=== PATIENT | male | born 1960 | race Caucasian/White ===

== ENCOUNTER 2017-02-02 06:54 | Outpatient (CLI) | payer BC ==
[2017-02-02 19:22] LABS: BASOPHILS % (AUTO) 0.5 %; EOSINOPHILS % (AUTO) 0.4 %; HCT - HEMATOCRIT 42.1 % (42.0-52.0); HGB - HEMOGLOBIN 14.2 g/dL (14.0-18.0); LYMPHOCYTES # (AUTO) 1.5 10^3/uL (1.5-3.5); LYMPHOCYTES % (AUTO) 18.3 %; MEAN CORPUSCULAR HEMOGLOBIN 32.3 pg (27.0-31.0); MEAN CORPUSCULAR HGB CONC 33.7 g/dL (32.0-36.0); MEAN CORPUSCULAR VOLUME 95.7 fL (80.0-94.0); MONOCYTES # (AUTO) 0.4 10^3/uL (0.0-1.0); MONOCYTES % (AUTO) 4.7 %; NEUTROPHILS # (AUTO) 6.3 10^3/uL (1.5-6.6); NEUTROPHILS % (AUTO) 76.1 %; RED CELL DISTRIBUTION WIDTH 13.2 % (12.0-15.0); UNCORRECTED WHITE BLOOD COUNT 8.2 x10^3/uL; WHITE BLOOD COUNT 8.2 x10^3/uL (4.8-10.8)
[2017-02-02 19:45] LABS: ALBUMIN/GLOBULIN RATIO 2.1 (1.0-2.2); BILIRUBIN,TOTAL 1.2 mg/dL (0.2-1.0); BUN - BLOOD UREA NITROGEN 19 mg/dL (6-20); CALCIUM 9.1 mg/dL (8.5-10.3); CARBON DIOXIDE - CO2 25 mmol/L (21-32); CHLORIDE 102 mmol/L (101-111); CHOL/HDL RATIO 2.1 (<5.0); CHOLESTEROL 212 mg/dL; CREATININE 0.7 mg/dL (0.6-1.2); GFR - MDRD 117 (>89); GLUCOSE 104 mg/dL (70-100); HDL CHOLESTEROL 101 mg/dL; POTASSIUM 3.8 mmol/L (3.5-5.0); SODIUM 137 mmol/L (135-145); TOTAL PROTEIN 6.6 g/dL (6.7-8.2); TRIGLYCERIDES 64 mg/dL; VLDL CHOLESTEROL 13 mg/dL
== END 2017-02-02 06:55 ==
LOC: LAB.WCP 06:54
PROVIDERS: ATTEND Family Medicine
DX: I49.8 Other specified cardiac arrhythmias (principal)
CPT/HCPCS: 36415; 80053; 80061; 84443; 85025

== ENCOUNTER 2017-06-25 17:24 | Emergency (ER) | payer OTHER, BC ==
--- NOTE | 2017-06-25 17:31 | ED Physician Documentation ---
PD HPI ANIMAL BITE - Stated complaint Stated Complaint: DOG BITE - History obtained from History obtained from: Patient - History of Present Illness Location of injury(ies): Right hand (dorsal MCP of index finger.) Details of the event: Dog, Bite, Well appearing (he was at work at [employer] and approached a car customer and the dog bit him in hand as he reached to it.) , Immunized, Provoked, Animal control notified Timing - onset: Today Timing - details: Abrupt onset Associated symptoms: No: Weakness, Numbness, Tingling Contributing factors: Work related Similar symptoms before: Has not had sx before Recently seen: Not recently seen Review of Systems Neurologic: denies: Focal weakness, Numbness, Near syncope PD PAST MEDICAL HISTORY - Past Medical History Neuro: None Endocrine/Autoimmune: None - Present Medications Home Medications: Ambulatory Orders Medication Instructions Recorded Confirmed Acetaminophen [Tylenol] 2 tab PO TID 06/25/17 06/25/17 Amox/Clav 875/125 [Augmentin] 1 each PO BID #10 tablet 06/25/17 Meloxicam [Mobic] 1 tab PO DAILY 06/25/17 06/25/17 - Allergies Allergies/Adverse Reactions: Allergies Allergy/AdvReac Type Severity Reaction Status Date / Time No Known Drug Allergies Allergy Verified 06/25/17 17:33 PD ED PE NORMAL - Vitals Vital signs reviewed: Yes - General General: Alert and oriented X 3, No acute distress, Well developed/nourished - Derm Derm: Normal color, Warm and dry - Extremities Extremities: Other (right hand with 2 cm lac over index finger MCP, exposing joint capsule but no deep structures. No FB. ) - Neuro Neuro: Alert and oriented X 3, No motor deficit, No sensory deficit, Normal speech Results - Vitals Vitals: Oxygen O2 Source Room air Procedures - Laceration (location) right hand Length in cm: 2 Wound type: Curved Neurovascular status: Sensory intact, Motor intact, Vascular intact Tendon involvement: Tendon intact Anesthesia: Lidocaine 2% with epi Wound Preparation: Irrigated copiously NS Skin layer closure: Nylon, Interrupted, Size #-0 - enter number (4) Other: Patient tolerated well, No complications, Neurovascular intact, Dressing applied, Tetanus UTD Complexity: Simple PD MEDICAL DECISION MAKING - ED course Complexity details: considered differential, d/w patient Departure - Departure Disposition: 01 Home, Self Care Clinical Impression: Dog bite of right hand Qualifiers: Encounter type: initial encounter Qualified Code(s): S61.451A - Open bite of right hand, initial encounter Hand laceration Qualifiers: Encounter type: initial encounter Foreign body presence: without foreign body Laterality: right Qualified Code(s): S61.411A - Laceration without foreign body of right hand, initial encounter Condition: Stable Record reviewed to determine appropriate education?: Yes Instructions: ED Bite Animal General, ED Laceration Hand Follow-Up: Mahendra Gallo MD [Primary Care Provider] - Prescriptions: Amox/Clav 875/125 [Augmentin] 1 each PO BID #10 tablet Comments: It is okay to wash and shower. Clean off the wound twice a day with soap and water, or peroxide and water. Apply some antibiotic ointment to it to keep it moist. Also to watch for signs of infection such as purulence, redness or increasing pain. Return to your primary care or the ER at the specified time for suture removal. Suture removal in 12-14 days. Discharge Date/Time: 06/25/17 18:44
[2017-06-25 17:34] VITALS: BP 141/101
[2017-06-25] MEDS ORDERED: IBUPROFEN 600 MG TABLET PO STA (17:37)
[2017-06-25] MEDS ORDERED: LIDOCAINE MPF 1%-EPI 1:200000 30 ML VIAL SUBQ STA (17:37)
[2017-06-25] MEDS ORDERED: AMOX/CLAV 875 MG/125 MG TABLET PO STA (17:37)
[2017-06-25] MEDS ORDERED: IBUPROFEN 600 MG TABLET PO ONE (17:48)
[2017-06-25] MEDS ORDERED: LIDOCAINE 2%-EPI 1:100000 20 ML MDV ONE (17:48)
[2017-06-25] MEDS ORDERED: AMOX/CLAV 875 MG/125 MG TABLET PO ONE (17:48)
== END 2017-06-25 18:44 | disposition home or self-care (01) ==
LOC: ED 17:24
DX: S61.210A Laceration without foreign body of right index finger without damage to nail, initial encounter (principal); W54.0XXA Bitten by dog, initial encounter; Y92.89 Other specified places as the place of occurrence of the external cause; Y99.0 Civilian activity done for income or pay
CPT/HCPCS: 1040M; 12001; 99283; A9270

== ENCOUNTER 2017-09-14 17:51 | Outpatient (CLI) | payer BC, OTHER ==
[2017-09-14 15:23] LABS: BASOPHILS # (AUTO) 0.3 10^3/uL (0.0-0.1); BASOPHILS % (AUTO) 3.4 %; EOSINOPHILS # (AUTO) 0.3 10^3/uL (0.0-0.7); HGB - HEMOGLOBIN 10.6 g/dL (14.0-18.0); LYMPHOCYTES # (AUTO) 1.7 10^3/uL (1.5-3.5); LYMPHOCYTES % (AUTO) 19.4 %; MEAN CORPUSCULAR HEMOGLOBIN 30.5 pg (27.0-31.0); MEAN CORPUSCULAR HGB CONC 33.6 g/dL (32.0-36.0); MEAN CORPUSCULAR VOLUME 90.7 fL (80.0-94.0); MEAN PLATELET VOLUME 6.4 fL (7.4-11.4); MONOCYTES # (AUTO) 0.5 10^3/uL (0.0-1.0); MONOCYTES % (AUTO) 6.1 %; NEUTROPHILS # (AUTO) 5.8 10^3/uL (1.5-6.6); NEUTROPHILS % (AUTO) 67.1 %; PLT - PLATELET COUNT 483 10^3/uL (130-450); RED BLOOD COUNT 3.49 10^6/uL (4.70-6.10); RED CELL DISTRIBUTION WIDTH 13.8 % (12.0-15.0); WHITE BLOOD COUNT 8.6 x10^3/uL (4.8-10.8)
[2017-09-14 15:39] LABS: CALCIUM 8.9 mg/dL (8.5-10.3); CREATININE 0.7 mg/dL (0.6-1.2); CRP - C-REACTIVE PROTEIN 2.9 mg/dL (0-1.0)
== END 2017-09-14 17:52 | disposition home or self-care (01) ==
LOC: LAB.R 17:51
PROVIDERS: ATTEND Internal Medicine
DX: T81.4XXA Infection following a procedure, initial encounter (principal)
CPT/HCPCS: 80048; 85025; 86140

== ENCOUNTER 2018-04-22 07:09 | Outpatient (CLI) | payer BC ==
[2018-04-22 14:46] LABS: BASOPHILS % (AUTO) 0.4 %; EOSINOPHILS # (AUTO) 0.2 10^3/uL (0.0-0.7); EOSINOPHILS % (AUTO) 4.4 %; HGB - HEMOGLOBIN 14.9 g/dL (14.0-18.0); LYMPHOCYTES # (AUTO) 1.8 10^3/uL (1.5-3.5); LYMPHOCYTES % (AUTO) 35.9 %; MEAN CORPUSCULAR HEMOGLOBIN 32.8 pg (27.0-31.0); MEAN CORPUSCULAR HGB CONC 34.5 g/dL (32.0-36.0); MEAN CORPUSCULAR VOLUME 95.3 fL (80.0-94.0); MEAN PLATELET VOLUME 7.1 fL (7.4-11.4); MONOCYTES # (AUTO) 0.4 10^3/uL (0.0-1.0); MONOCYTES % (AUTO) 7.2 %; NEUTROPHILS # (AUTO) 2.6 10^3/uL (1.5-6.6); NEUTROPHILS % (AUTO) 52.1 %; PLT - PLATELET COUNT 274 10^3/uL (130-450); RED BLOOD COUNT 4.54 10^6/uL (4.70-6.10); RED CELL DISTRIBUTION WIDTH 13.4 % (12.0-15.0)
[2018-04-22 14:54] LABS: ALBUMIN 4.4 g/dL (3.2-5.5); ALBUMIN/GLOBULIN RATIO 1.8 (1.0-2.2); ALKALINE PHOSPHATASE 72 IU/L (42-121); ALT ALANINE AMINOTRANSFERASE 29 IU/L (10-60); AST ASPARTATE AMINOTRANSFERASE 29 IU/L (10-42); BILIRUBIN,TOTAL 0.7 mg/dL (0.2-1.0); BUN - BLOOD UREA NITROGEN 25 mg/dL (6-20); CARBON DIOXIDE - CO2 23 mmol/L (21-32); CHLORIDE 103 mmol/L (101-111); CHOL/HDL RATIO 2.3 (<5.0); CHOLESTEROL 223 mg/dL; CREATININE 0.7 mg/dL (0.6-1.2); GFR - MDRD 117 (>89); GLUCOSE 103 mg/dL (70-100); HDL CHOLESTEROL 99 mg/dL; LDL CHOLESTEROL,CALCULATED 113 mg/dL; LDL/HDL RATIO 1.1 (<3.6); SODIUM 136 mmol/L (135-145); TOTAL PROTEIN 6.9 g/dL (6.7-8.2); VLDL CHOLESTEROL 11 mg/dL
== END 2018-04-22 07:10 | disposition home or self-care (01) ==
LOC: LAB.WCP 07:09
PROVIDERS: ATTEND Family Medicine
DX: I10 Essential (primary) hypertension (principal); R68.82 Decreased libido; Z12.5 Encounter for screening for malignant neoplasm of prostate
CPT/HCPCS: 36415; 80053; 80061; 81599; 83721; 84153; 84402; 84403; 84443; 85025

== ENCOUNTER 2019-04-06 18:32 | Emergency (ER) | payer BC ==
[2019-04-06 18:53] VITALS: BP 145/91
--- NOTE | 2019-04-06 19:00 | ED Physician Documentation ---
PD HPI LOWER EXT INJURY - Stated complaint Stated Complaint: LT KNEE PX/RED,SWELL - Chief complaint Chief Complaint: Ext Problem - History obtained from History obtained from: Patient - History of Present Illness PD HPI LOW EXT INJURY LOCATION: Left (Since yesterday he is had increasingly painful swelling of the left knee. He went to an urgent care that advised rest and ice but it is progressive despite that. He does have a history of bursitis. He denies any fevers. There is no specific injury. He is on his knees occasionally at work.) Review of Systems Constitutional: reports: Reviewed and negative Throat: reports: Reviewed and negative Cardiac: reports: Reviewed and negative Respiratory: reports: Reviewed and negative PD PAST MEDICAL HISTORY - Past Medical History Endocrine/Autoimmune: None Musculoskeletal: Chronic back pain - Past Surgical History Past Surgical History: Yes General: Appendectomy Ortho: Shoulder arthroplasty, Other - Present Medications Home Medications: Ambulatory Orders Medication Instructions Recorded Confirmed Acetaminophen [Tylenol] 2 tab PO TID 06/25/17 06/25/17 Amox/Clav 875/125 [Augmentin] 1 each PO BID #10 tablet 06/25/17 Meloxicam [Mobic] 1 tab PO DAILY 06/25/17 06/25/17 Cephalexin [Keflex] 500 mg PO Q6H #28 capsule 04/06/19 - Allergies Allergies/Adverse Reactions: Allergies Allergy/AdvReac Type Severity Reaction Status Date / Time No Known Drug Allergies Allergy Verified 04/06/19 18:53 - Social History Does the pt smoke?: No Smoking Status: Never smoker Does the pt drink ETOH?: Yes Does the pt have substance abuse?: No - Immunizations Immunizations are current?: Yes - POLST Patient has POLST: No PD ED PE NORMAL - Vitals Vital signs reviewed: Yes - General General: Alert and oriented X 3, No acute distress - Extremities Extremities: Other (He is a clear case of patellar bursitis on the left, very swollen red and mildly tender. No limited range of motion.) - Neuro Neuro: Alert and oriented X 3, Normal speech Results - Vitals Vitals: Vital Signs - 24 hr 04/06/19 18:46 Temperature 36.5 C Heart Rate 76 Respiratory 16 Rate Blood Pressure 145/91 H O2 Saturation 95 Oxygen O2 Source Room air - Labs Labs: Microbiology 04/06/19 19:10 Wound Culture - Preliminary Knee - Left Procedures - General procedure General procedure: The left knee was prepped with Hibiclens, locally infiltrated with 1% lidocaine with epinephrine, then a an anterior incision was made over the prepatellar bursa and and copious clear fluid was taken out and sent for culture. Quarter inch packing was placed. The patient tolerated this very well. Departure - Departure Disposition: 01 Home, Self Care Clinical Impression: Prepatellar bursitis Condition: Good Record reviewed to determine appropriate education?: Yes Instructions: ED Bursitis Follow-Up: [facility] [Provider Group] - Within 1 week Prescriptions: Cephalexin [Keflex] 500 mg PO Q6H #28 capsule Comments: He can remove the packing in 2 days. Return for new worsening symptoms such as fever, increased pain or swelling. We are performing a wound culture, the results should be done in 48-72 hours. If antibiotic change is necessary we will call you. Return if worse in the meantime, especially if you develop increased pain, fevers, cannot keep down the medication. Discharge Date/Time: 04/06/19 19:22
[2019-04-06] MEDS ORDERED: cephALEXin 250 MG CAPSULE PO STA (19:11)
== END 2019-04-06 19:22 | disposition home or self-care (01) ==
LOC: ED 18:32
DX: M70.42 Prepatellar bursitis, left knee (principal)
CPT/HCPCS: 20610; 87070; 87181; 87205; 99283; A9270

== ENCOUNTER 2019-04-07 05:33 | Emergency (ER) | payer BC ==
[2019-04-07 05:44] VITALS: BP 152/99
[2019-04-07] MEDS ORDERED: oxyCODONE 5 MG TABLET PO STA (05:50)
[2019-04-07] MEDS ORDERED: oxyCODONE/ACET 5/325 Prepack 4 PO STA (05:50)
[2019-04-07] MEDS ORDERED: ONDANSETRON ODT 4 MG TABLET TL STA (05:50)
[2019-04-07] MEDS ORDERED: DEXAMETHASONE 10 MG/ML VIAL PO STA (05:50)
[2019-04-07] MEDS ORDERED: CHERRY SYRUP 10 ML UDC PO ONE (05:50)
--- NOTE | 2019-04-07 05:53 | ED Physician Documentation ---
PD HPI WOUND RECHECK - Stated complaint Stated Complaint: KNEE PX - Chief complaint Chief Complaint: Wound - Histroy obtained from History obtained from: Patient - History of Present Illness Location: Left Lower Extremity (anterior knee) Associated symptoms: Redness, Swelling Recently seen: Emergency Dept (Eating about 12 hours ago in the ER for knee b ursitis with effusion. He had an incision of it with drainage of clear fluid by report and was given cephalexin in case of infection. He takes Mobic and Tylenol. He states the pain has not really decreased overnight as expected from the draining and antibiotic. He denies any fever nor increased redness.) Review of Systems Constitutional: denies: Fever, Chills GI: denies: Nausea, Vomiting PD PAST MEDICAL HISTORY - Past Medical History Past Medical History: Yes Endocrine/Autoimmune: None Musculoskeletal: Chronic back pain - Past Surgical History Past Surgical History: Yes General: Appendectomy Ortho: Shoulder arthroplasty, Other - Present Medications Home Medications: Ambulatory Orders Medication Instructions Recorded Confirmed Acetaminophen [Tylenol] 2 tab PO TID 06/25/17 06/25/17 Amox/Clav 875/125 [Augmentin] 1 each PO BID #10 tablet 06/25/17 Meloxicam [Mobic] 1 tab PO DAILY 06/25/17 06/25/17 Cephalexin [Keflex] 500 mg PO Q6H #28 capsule 04/06/19 Oxycodone HCl/Acetaminophen 1 each PO Q6HR PRN #12 tablet 04/07/19 [Oxycodon-Acetaminophen 2.5-325] dexAMETHasone [Decadron] 4 mg PO DAILY #5 tablet 04/07/19 - Allergies Allergies/Adverse Reactions: Allergies Allergy/AdvReac Type Severity Reaction Status Date / Time No Known Drug Allergies Allergy Verified 04/07/19 05:44 - Social History Does the pt smoke?: No Smoking Status: Never smoker Does the pt drink ETOH?: Yes Does the pt have substance abuse?: No - Immunizations Immunizations are current?: Yes - POLST Patient has POLST: No PD ED PE NORMAL - Vitals Vital signs reviewed: Yes - General General: Alert and oriented X 3, No acute distress, Well developed/nourished - Derm Derm: Normal color, Warm and dry - Extremities Extremities: Other (Left knee shows demarcated redness over the anterior aspect of the knee. There is no joint effusion. There is an incision in the anterior knee with a wick in place and no palpable effusion in the bursa. There is localized tenderness. There is no red streaking proximal.) - Neuro Neuro: No motor deficit, No sensory deficit Results - Vitals Vitals: Vital Signs - 24 hr 04/07/19 05:35 Temperature 36.9 C Heart Rate 72 Respiratory 17 Rate Blood Pressure 152/99 H O2 Saturation 98 Oxygen O2 Source Room air PD MEDICAL DECISION MAKING - ED course Complexity details: reviewed results (The Gram stain from the previous visit showed some white cells but no bacteria seen. The culture is still pending.), considered differential (We can add steroid anti-inflammatory and some pain medicine to his regimen of the Mobic and cephalexin. He will give a note for work for today.), d/w patient Departure - Departure Disposition: 01 Home, Self Care Clinical Impression: Prepatellar bursitis Qualifiers: Laterality: left Qualified Code(s): M70.42 - Prepatellar bursitis, left knee Condition: Stable Record reviewed to determine appropriate education?: Yes Instructions: ED Bursitis Follow-Up: Mahendra Gallo MD [Primary Care Provider] - Prescriptions: Oxycodone HCl/Acetaminophen [Oxycodon-Acetaminophen 2.5-325] 1 each PO Q6HR PRN #12 tablet PRN Reason: Pain dexAMETHasone [Decadron] 4 mg PO DAILY #5 tablet Comments: Continue the cephalexin antibiotic and your usual Mobic and Tylenol. Add oxycodone if needed for pain. You can continue Decadron steroid anti- inflammatory for a few days as well. The culture from the knee from last evening will result in another day or 2. This will tell us if it is infectious or not. Forms: Activity restrictions
== END 2019-04-07 06:02 | disposition home or self-care (01) ==
LOC: ED 05:33
DX: M70.42 Prepatellar bursitis, left knee (principal)
CPT/HCPCS: 99282; 99283; A9270; Q0162

== ENCOUNTER 2019-04-18 15:49 | Emergency (ER) | payer BC ==
[2019-04-18 17:09] LABS: BASOPHILS # (AUTO) 0.1 10^3/uL (0.0-0.1); BASOPHILS % (AUTO) 1.1 %; EOSINOPHILS # (AUTO) 0.2 10^3/uL (0.0-0.7); EOSINOPHILS % (AUTO) 3.3 %; HGB - HEMOGLOBIN 14.1 g/dL (14.0-18.0); LYMPHOCYTES % (AUTO) 27.5 %; MEAN CORPUSCULAR HEMOGLOBIN 32.6 pg (27.0-31.0); MEAN CORPUSCULAR HGB CONC 33.3 g/dL (32.0-36.0); MEAN CORPUSCULAR VOLUME 97.7 fL (80.0-94.0); MONOCYTES # (AUTO) 0.8 10^3/uL (0.0-1.0); NEUTROPHILS # (AUTO) 4.1 10^3/uL (1.5-6.6); NEUTROPHILS % (AUTO) 56.4 %; PLT - PLATELET COUNT 278 10^3/uL (130-450); RED BLOOD COUNT 4.33 10^6/uL (4.70-6.10); RED CELL DISTRIBUTION WIDTH 12.3 % (12.0-15.0); WHITE BLOOD COUNT 7.3 x10^3/uL (4.8-10.8)
[2019-04-18 17:24] LABS: ALBUMIN 4.1 g/dL (3.2-5.5); ALBUMIN/GLOBULIN RATIO 1.2 (1.0-2.2); BILIRUBIN,TOTAL 0.6 mg/dL (0.2-1.0); CALCIUM 9.5 mg/dL (8.5-10.3); CREATININE 0.9 mg/dL (0.6-1.2); TOTAL PROTEIN 7.4 g/dL (6.7-8.2)
--- NOTE | 2019-04-18 19:25 | ED Physician Documentation ---
PD HPI LOWER EXT INJURY - Stated complaint Stated Complaint: L KNEE PX - Chief complaint Chief Complaint: Wound - History obtained from History obtained from: Patient - History of Present Illness PD HPI LOW EXT INJURY LOCATION: Left, Knee Type of injury: Other Improved by: Nothing Recently seen: Emergency Dept - Additional information Additional information: Is a 59-year-old man who presents with his significant other complaints that he had some left knee pain that began on 05 April like he had bruised it but was swollen he went to the walk-in clinic and was diagnosed with bursitis. By the following day it was much worse so he came here I&D was done and he was placed on antibiotics. The culture subsequently grew out staph aureus that was sensitive to both Keflex and Bactrim which she was taking. He was subsequently re-seen the following day because he was in so much pain and given a prescription for some oxycodone. He says in that time frame he has had no relief of the swelling. He still has pain at a 5-7 out of 10. He denies any fever. He has no history of gout. In addition to the oxycodone he was taking his chronic meloxicam and Tylenol. Interestingly 2 days ago he also developed this pain in his right jaw and upper and lower right side of his teeth. Of note the patient was working out in the [employer] yesterday and yesterday evening the red hot area was blown up like a balloon is actually better today. He works at [employer]. Review of Systems Constitutional: denies: Fever Throat: reports: Dental pain / toothache Cardiac: reports: Pedal edema GI: denies: Nausea, Vomiting Skin: reports: Rash, Other (Erythema and warmth over the left knee) Musculoskeletal: reports: Back pain (Chronic) PD PAST MEDICAL HISTORY - Past Medical History Endocrine/Autoimmune: None Musculoskeletal: Chronic back pain - Past Surgical History Past Surgical History: Yes General: Appendectomy Ortho: Shoulder arthroplasty, Other - Present Medications Home Medications: Ambulatory Orders Medication Instructions Recorded Confirmed Acetaminophen [Tylenol] 2 tab PO TID 06/25/17 06/25/17 Amox/Clav 875/125 [Augmentin] 1 each PO BID #10 tablet 06/25/17 Meloxicam [Mobic] 1 tab PO DAILY 06/25/17 06/25/17 Cephalexin [Keflex] 500 mg PO Q6H #28 capsule 04/06/19 Oxycodone HCl/Acetaminophen 1 each PO Q6HR PRN #12 tablet 04/07/19 [Oxycodon-Acetaminophen 2.5-325] dexAMETHasone [Decadron] 4 mg PO DAILY #5 tablet 04/07/19 Piroxicam [Feldene] 10 mg PO DAILY #30 capsule 04/18/19 - Allergies Allergies/Adverse Reactions: Allergies Allergy/AdvReac Type Severity Reaction Status Date / Time No Known Drug Allergies Allergy Verified 04/18/19 16:07 - Social History Does the pt smoke?: No Smoking Status: Never smoker Does the pt drink ETOH?: Yes Does the pt have substance abuse?: No - Immunizations Immunizations are current?: Yes - POLST Patient has POLST: No PD ED PE NORMAL - Vitals Vital signs reviewed: Yes - General General: Alert and oriented X 3, No acute distress, Well developed/nourished - HEENT HEENT: Atraumatic, PERRL - Cardiac Cardiac: RRR - Respiratory Respiratory: No respiratory distress - Derm Derm: Normal color, Warm and dry - Extremities Extremities: Other (There is a small scab overlying the left olecranon bursa. Directly over the bursa there is bright red erythema that is extremely warm. It is not ballotable. There is just a faint erythematous flush surrounding this and a little bit onto the medial thigh. No red streaking and no warmth associated with that surrounding erythema. He has full range of motion about the knee with very minimal pain. No pitting edema of the lower extremity.) - Neuro Neuro: Alert and oriented X 3, No motor deficit, No sensory deficit, Normal speech Results - Vitals Vitals: Vital Signs - 24 hr 04/18/19 04/18/19 04/18/19 16:07 19:28 19:37 Temperature 36.8 C 36.9 C Heart Rate 75 61 60 Respiratory 17 16 17 Rate Blood Pressure 156/88 H 138/81 H 138/81 H O2 Saturation 98 100 100 Oxygen O2 Source Room air - Labs Labs: Laboratory Tests 04/18/19 04/18/19 04/18/19 17:02 17:02 17:02 WBC 7.3 RBC 4.33 L Hgb 14.1 Hct 42.3 MCV 97.7 H MCH 32.6 H MCHC 33.3 RDW 12.3 Plt Count 278 MPV 8.0 Neut # (Auto) 4.1 Lymph # (Auto) 2.0 [place] # (Auto) 0.8 Eos # (Auto) 0.2 Baso # (Auto) 0.1 Absolute Nucleated RBC 0.00 Nucleated RBC % 0.0 ESR 15 Sodium 137 Potassium 5.1 H Chloride 102 Carbon Dioxide 26 Anion Gap 9.0 BUN 24 H Creatinine 0.9 Estimated GFR (MDRD) 87 L Glucose 98 Calcium 9.5 Total Bilirubin 0.6 AST 17 ALT 23 Alkaline Phosphatase 69 Total Protein 7.4 Albumin 4.1 Globulin 3.3 Albumin/Globulin Ratio 1.2 Lipase 31 PD MEDICAL DECISION MAKING - ED course ED course: White blood cell count and sed rate were normal. My clinical impression is that there is no active infection that this is still persistent prepatellar bursitis. This was discussed at length with him and his and they stated understanding. Working to switch him off the meloxicam currently onto a different anti-inflammatory medication. Have him icing this he is given a note to be off from work and is not to put any compression on it at all. Follow-up if worsening. Departure - Departure Disposition: 01 Home, Self Care Clinical Impression: Prepatellar bursitis Qualifiers: Laterality: left Qualified Code(s): M70.42 - Prepatellar bursitis, left knee Condition: Good Instructions: ED Bursitis Follow-Up: Mahendra Gallo MD [Primary Care Provider] - Prescriptions: Piroxicam [Feldene] 10 mg PO DAILY #30 capsule Comments: Stop your meloxicam while taking the Feldene twice a day. Take it with food. You can ice the knee but avoid any compression to it at all. Follow-up with your primary care provider for recheck if needed. Return for reevaluation if it swells again and is not diminishing, there is spreading redness particularly up your thigh or in a red streak up the thigh, you develop a fever or have increasing pain to the point that she cannot bend the knee.
[2019-04-18 19:28] VITALS: BP 138/81
[2019-04-18] MEDS ORDERED: KETOROLAC 30 MG/ML VIAL IVP STA (20:11)
== END 2019-04-18 20:37 | disposition home or self-care (01) ==
LOC: ED 15:49
DX: M70.42 Prepatellar bursitis, left knee (principal); K08.89 Other specified disorders of teeth and supporting structures
CPT/HCPCS: 36415; 80053; 83690; 85025; 85651; 86140; 96374; 99284

== ENCOUNTER 2020-06-11 07:36 | Outpatient (CLI) | payer BC ==
[2020-06-11 12:26] LABS: BASOPHILS # (AUTO) 0.1 10^3/uL (0.0-0.1); BASOPHILS % (AUTO) 0.9 %; EOSINOPHILS # (AUTO) 0.1 10^3/uL (0.0-0.7); EOSINOPHILS % (AUTO) 2.6 %; HGB - HEMOGLOBIN 14.6 g/dL (14.0-18.0); LYMPHOCYTES # (AUTO) 1.6 10^3/uL (1.5-3.5); LYMPHOCYTES % (AUTO) 30.5 %; MEAN CORPUSCULAR HEMOGLOBIN 32.7 pg (27.0-31.0); MEAN CORPUSCULAR VOLUME 99.1 fL (80.0-94.0); MONOCYTES # (AUTO) 0.5 10^3/uL (0.0-1.0); MONOCYTES % (AUTO) 8.6 %; NEUTROPHILS % (AUTO) 57.2 %; PLT - PLATELET COUNT 302 10^3/uL (130-450); RED BLOOD COUNT 4.46 10^6/uL (4.70-6.10); RED CELL DISTRIBUTION WIDTH 12.6 % (12.0-15.0); WHITE BLOOD COUNT 5.3 x10^3/uL (4.8-10.8)
[2020-06-11 13:02] LABS: ALBUMIN/GLOBULIN RATIO 1.5 (1.0-2.2); ALKALINE PHOSPHATASE 71 IU/L (42-121); ALT ALANINE AMINOTRANSFERASE 26 IU/L (10-60); AST ASPARTATE AMINOTRANSFERASE 25 IU/L (10-42); BILIRUBIN,TOTAL 0.7 mg/dL (0.2-1.0); BUN - BLOOD UREA NITROGEN 27 mg/dL (6-20); CALCIUM 9.2 mg/dL (8.5-10.3); CARBON DIOXIDE - CO2 25 mmol/L (21-32); CHLORIDE 104 mmol/L (101-111); CHOLESTEROL 197 mg/dL; CREATININE 0.8 mg/dL (0.6-1.2); GLUCOSE 112 mg/dL (70-100); HDL CHOLESTEROL 98 mg/dL; SODIUM 141 mmol/L (135-145); TOTAL PROTEIN 6.6 g/dL (6.7-8.2)
== END 2020-06-11 23:59 | disposition home or self-care (01) ==
LOC: LAB.WCP 07:36
PROVIDERS: ATTEND Internal Medicine
DX: E78.5 Hyperlipidemia, unspecified (principal); R03.0 Elevated blood-pressure reading, without diagnosis of hypertension; Z12.5 Encounter for screening for malignant neoplasm of prostate; R00.2 Palpitations
CPT/HCPCS: 36415; 80053; 80061; 83721; 84153; 84443; 85025

== ENCOUNTER 2020-10-15 08:00 | Outpatient (CLI) | payer BC | END 2020-10-15 23:59 | disposition home or self-care (01) | LOC: DI.N 08:00 | PROVIDERS: ATTEND Nurse Practitioner | DX: M25.429 Effusion, unspecified elbow (principal) | CPT/HCPCS: 81599; 87070; 87075; 87205 ==

== ENCOUNTER 2021-02-15 08:00 | Outpatient (CLI) | payer BC ==
[2021-02-15 17:40] LABS: BASOPHILS # (AUTO) 0.1 10^3/uL (0.0-0.1); BASOPHILS % (AUTO) 0.9 %; EOSINOPHILS # (AUTO) 0.1 10^3/uL (0.0-0.7); EOSINOPHILS % (AUTO) 0.7 %; HCT - HEMATOCRIT 40.2 % (42.0-52.0); HGB - HEMOGLOBIN 13.5 g/dL (14.0-18.0); LYMPHOCYTES # (AUTO) 1.5 10^3/uL (1.5-3.5); LYMPHOCYTES % (AUTO) 21.8 %; MEAN CORPUSCULAR HEMOGLOBIN 32.4 pg (27.0-31.0); MEAN CORPUSCULAR HGB CONC 33.6 g/dL (32.0-36.0); MEAN CORPUSCULAR VOLUME 96.4 fL (80.0-94.0); MEAN PLATELET VOLUME 8.7 fL (7.4-11.4); MONOCYTES # (AUTO) 0.5 10^3/uL (0.0-1.0); MONOCYTES % (AUTO) 7.7 %; NEUTROPHILS # (AUTO) 4.8 10^3/uL (1.5-6.6); NEUTROPHILS % (AUTO) 68.6 %; PLT - PLATELET COUNT 280 10^3/uL (130-450); RED BLOOD COUNT 4.17 10^6/uL (4.70-6.10); RED CELL DISTRIBUTION WIDTH 12.8 % (12.0-15.0)
[2021-02-15 17:50] LABS: ALBUMIN 4.5 g/dL (3.2-5.5); ALBUMIN/GLOBULIN RATIO 1.8 (1.0-2.2); BILIRUBIN,TOTAL 1.3 mg/dL (0.2-1.0); CALCIUM 9.4 mg/dL (8.5-10.3); CREATININE 0.8 mg/dL (0.6-1.2); POTASSIUM 4.4 mmol/L (3.5-5.0)
== END 2021-02-15 23:59 | disposition home or self-care (01) ==
LOC: LAB.WCP 08:00
PROVIDERS: ATTEND Internal Medicine
DX: Z01.812 Encounter for preprocedural laboratory examination (principal)
CPT/HCPCS: 36415; 80053; 85025

== ENCOUNTER 2021-02-21 16:51 | Outpatient (CLI) | payer BC | END 2021-02-21 16:52 | disposition home or self-care (01) | LOC: COV 16:51 | PROVIDERS: ATTEND Internal Medicine | DX: Z01.812 Encounter for preprocedural laboratory examination (principal); Z20.822 Contact with and (suspected) exposure to COVID-19 | CPT/HCPCS: 87640 ==

== ENCOUNTER 2021-03-18 17:56 | Outpatient (CLI) | payer BC ==
--- NOTE | 2021-03-19 08:34 | XRAY Report ---
PROCEDURE: Finger(s) LT INDICATIONS: STRAIN OF MUSCLES, FASCIA AND TENDONS OF L WRIST TECHNIQUE: AP hand, 2 views of the third finger(s) acquired. COMPARISON: None FINDINGS: Bones: No fractures or dislocations. Mild third MCP joint, PIP and DIP joint osteoarthritic changes are seen. No gross bony erosive changes. No suspicious bony lesions. Soft tissues: No suspicious soft tissue calcifications. IMPRESSION: No fracture or dislocation is seen. No gross bony erosive changes. Very mild third finger osteoarthri tis. Reviewed by: Abbe Miranda MD on 03/19/2021 8:33 AM PDT Approved by: Abbe Miranda MD on 03/19/2021 8:33 AM PDT Station ID: [id number]
== END 2021-03-18 23:59 | disposition home or self-care (01) ==
LOC: DI.N 17:56
PROVIDERS: ATTEND Nurse Practitioner
DX: M19.042 Primary osteoarthritis, left hand (principal)

== ENCOUNTER 2021-06-10 07:30 | Outpatient (CLI) | payer BC, OTHER ==
[2021-06-10 12:16] LABS: BASOPHILS # (AUTO) 0.1 10^3/uL (0.0-0.1); EOSINOPHILS # (AUTO) 0.2 10^3/uL (0.0-0.7); EOSINOPHILS % (AUTO) 4.6 %; HCT - HEMATOCRIT 44.4 % (42.0-52.0); HGB - HEMOGLOBIN 14.5 g/dL (14.0-18.0); LYMPHOCYTES # (AUTO) 1.9 10^3/uL (1.5-3.5); LYMPHOCYTES % (AUTO) 37.3 %; MEAN CORPUSCULAR HEMOGLOBIN 31.7 pg (27.0-31.0); MEAN CORPUSCULAR HGB CONC 32.7 g/dL (32.0-36.0); MEAN CORPUSCULAR VOLUME 97.2 fL (80.0-94.0); MEAN PLATELET VOLUME 8.5 fL (7.4-11.4); MONOCYTES # (AUTO) 0.4 10^3/uL (0.0-1.0); MONOCYTES % (AUTO) 8.2 %; NEUTROPHILS # (AUTO) 2.4 10^3/uL (1.5-6.6); NEUTROPHILS % (AUTO) 48.7 %; PLT - PLATELET COUNT 286 10^3/uL (130-450); RED BLOOD COUNT 4.57 10^6/uL (4.70-6.10); RED CELL DISTRIBUTION WIDTH 12.5 % (12.0-15.0)
[2021-06-10 12:21] LABS: ALBUMIN 4.4 g/dL (3.2-5.5); ALBUMIN/GLOBULIN RATIO 1.8 (1.0-2.2); ALKALINE PHOSPHATASE 72 IU/L (42-121); ALT ALANINE AMINOTRANSFERASE 26 IU/L (10-60); AST ASPARTATE AMINOTRANSFERASE 29 IU/L (10-42); BILIRUBIN,TOTAL 0.8 mg/dL (0.2-1.0); BUN - BLOOD UREA NITROGEN 28 mg/dL (6-20); CALCIUM 8.9 mg/dL (8.5-10.3); CARBON DIOXIDE - CO2 26 mmol/L (21-32); CHLORIDE 102 mmol/L (101-111); CHOL/HDL RATIO 2.3 (<5.0); CHOLESTEROL 216 mg/dL; CREATININE 0.6 mg/dL (0.6-1.2); GFR - MDRD 138 (>89); GLUCOSE 105 mg/dL (70-100); HDL CHOLESTEROL 94 mg/dL; LDL CHOLESTEROL,CALCULATED 110 mg/dL; LDL/HDL RATIO 1.2 (<3.6); POTASSIUM 4.4 mmol/L (3.5-5.0); SODIUM 136 mmol/L (135-145); TOTAL PROTEIN 6.9 g/dL (6.7-8.2); TRIGLYCERIDES 58 mg/dL; VLDL CHOLESTEROL 12 mg/dL
[2021-06-10 12:26] LABS: CRP - C-REACTIVE PROTEIN < 1.0 mg/dL (0-1.0)
[2021-06-10 13:42] LABS: RHEUMATOID FACTOR NEGATIVE (Negative)
[2021-06-12 09:41] LABS: ANA SCREEN NEGATIVE (NEGATIVE)
== END 2021-06-10 23:59 | disposition home or self-care (01) ==
LOC: LAB.WCP 07:30
PROVIDERS: ATTEND Internal Medicine
DX: I10 Essential (primary) hypertension (principal); E78.5 Hyperlipidemia, unspecified; Z12.5 Encounter for screening for malignant neoplasm of prostate; M25.50 Pain in unspecified joint
CPT/HCPCS: 36415; 80053; 80061; 83721; 84153; 85025; 85651; 86038; 86140; 86200; 86430

== ENCOUNTER 2021-06-12 11:04 | Outpatient (CLI) | payer BC, OTHER ==
--- NOTE | 2021-06-12 15:38 | XRAY Report ---
PROCEDURE: Hand 3 View BILAT INDICATIONS: OSTEOARTHRITIS, BILATERAL HANDS TECHNIQUE: 3 views of the hand(s) acquired. COMPARISON: None. FINDINGS: On the right, scattered degenerative spurring and sclerosis.Surgical arthrodesis of the carpus, and t he hardware appears intact. There is expected postoperative alignment. First CMC joint degeneration. Marginal lucencies projecting at the third and second MCP joints. On the left, scattered degenerative spurring and sclerosis. Diffuse carpal joint degeneration. Small ossicles projecting in the ulnocarpal compartment. Small marginal lucencies projecting at the second MCP joint IMPRESSION: Bilateral marginal lucencies of the MCP joints as above suspicious for erosions. Chronic degenerative and postsurgical changes. Reviewed by: Rudi Lloyd MD on 06/12/2021 3:37 PM PST Approved by: Rudi Lloyd MD on 06/12/2021 3:37 PM PST Station ID: [id number]
== END 2021-06-12 23:59 ==
LOC: DI.N 11:04
PROVIDERS: ATTEND Internal Medicine
DX: M19.042 Primary osteoarthritis, left hand (principal); M19.041 Primary osteoarthritis, right hand; R93.6 Abnormal findings on diagnostic imaging of limbs

== ENCOUNTER 2021-07-10 10:14 | Outpatient (CLI) | payer BC | END 2021-07-10 10:15 | disposition home or self-care (01) | LOC: DI 10:14 | PROVIDERS: ATTEND Internal Medicine | DX: I11.9 Hypertensive heart disease without heart failure (principal); R06.00 Dyspnea, unspecified; I49.3 Ventricular premature depolarization; I77.810 Thoracic aortic ectasia; I28.1 Aneurysm of pulmonary artery; I87.8 Other specified disorders of veins | CPT/HCPCS: 93306 ==

== ENCOUNTER 2021-07-25 15:03 | Outpatient (CLI) | payer BC ==
--- NOTE | 2021-07-25 15:58 | XRAY Report ---
PROCEDURE: Lumbar Spine w/Flex/Ext INDICATIONS: ASSESS FOR SIGNS OF HARDWARE LOOSENING W/ INCREASING PAIN TECHNIQUE: 4 views of the lumbar spine acquired. COMPARISON: None. FINDINGS: Bones: 5 [id number] vertebrae are present. Post surgical changes are seen from laminectomies a nd posterior fusion extending from L3 through S1 with pedicle screws and interbody rods as well as di sc spacers at the L4-5 and L5-S1 levels. Lucency is seen surrounding the pedicle screws within the L3 vertebral body. There is mild S-shaped curvature of the upper lumbar spine. Multilevel disc space narrowing and degen erative endplate changes are seen as well as multilevel facet hypertrophy. There is normal bony align ment. No vertebral body compression fractures. No suspicious bony lesions. Soft tissues: Overlying bowel gas pattern is normal. No suspicious soft tissue calcifications. Flexion/extension: There is normal movement range of motion without abnormal subluxation.. IMPRESSION: 1.Postsurgical changes extending from L3 through S1. Lucency surrounding the tips of the L3 pedicle s crews may indicate loosening. No definite backing out as seen on flexion or extension views. 2.Limited range of motion within lumbar spine. 3.Multilevel degenerative changes. Reviewed by: Phil Colby MD on 07/25/2021 3:57 PM PST Approved by: Phil Colby MD on 07/25/2021 3:57 PM PST Station ID: [id number]
== END 2021-07-25 15:04 | disposition home or self-care (01) ==
LOC: DI.N 15:03
PROVIDERS: ATTEND Internal Medicine
DX: M47.816 Spondylosis without myelopathy or radiculopathy, lumbar region (principal); R93.7 Abnormal findings on diagnostic imaging of other parts of musculoskeletal system; M51.36 Other intervertebral disc degeneration, lumbar region

== ENCOUNTER 2021-07-29 08:00 | Outpatient (CLI) | payer BC | END 2021-07-29 23:59 | LOC: LAB 08:00 | PROVIDERS: ATTEND Family Medicine | DX: U07.1 COVID-19 (principal) ==

== ENCOUNTER 2021-08-13 12:28 | Outpatient (CLI) | payer BC ==
--- NOTE | 2021-08-13 16:55 | Ultrasound Report ---
PROCEDURE: Testicle INDICATIONS: LEFT TESTIS VARICOCELE TECHNIQUE: Real-time scanning was performed of the scrotum and testicles, with image documentation. Color and p ulse Doppler interrogation was performed of both testicles. COMPARISON: None. FINDINGS: Right: Testicle is normal in size at 4.6 x 1.9 x 3.1 cm. There is a right testicular cyst measuring 3 mm. Epididymis is normal in overall size and morphology. Small hydrocele. No varicoceles. Overlyi ng scrotal skin is normal in thickness. Left: Testicle is normal in size at 4.1 x 1.9 x 3.2 cm, and homogeneous in echotexture. Epididymis is normal in overall size. Left epididymal head cysts measuring 12 mm and 20 mm, corresponding to the area of clinically palpable mass . There is a small hydrocele. No varicoceles. Overlying scrotal sk in is normal in thickness. Doppler: Color and pulse Doppler demonstrate normal and symmetric arterial flow in both testicles. IMPRESSION: 1. Small bilateral hydroceles. 2. No evidence of varicocele. 3. Left epididymal head cysts, corresponding to the patient's area of clinically palpable abnormality . Reviewed by: Wiliam Mackenzie MD on 08/13/2021 4:53 PM PST Approved by: Wiliam Mackenzie MD on 08/13/2021 4:53 PM PST Station ID: [id number]
== END 2021-08-13 12:29 | disposition home or self-care (01) ==
LOC: DI 12:28
PROVIDERS: ATTEND Internal Medicine
DX: I86.1 Scrotal varices (principal); N43.3 Hydrocele, unspecified; N50.3 Cyst of epididymis

== ENCOUNTER 2021-08-30 11:24 | Outpatient (CLI) | payer BC ==
[2021-08-30 18:39] LABS: CALCIUM 9.2 mg/dL (8.5-10.3); CREATININE 0.8 mg/dL (0.6-1.2); POTASSIUM 4.1 mmol/L (3.5-5.0)
== END 2021-08-30 11:25 | disposition home or self-care (01) ==
LOC: LAB.N 11:24
PROVIDERS: ATTEND Internal Medicine
DX: I10 Essential (primary) hypertension (principal)
CPT/HCPCS: 36415; 80048

== ENCOUNTER 2021-09-11 12:38 | Outpatient (CLI) | payer BC ==
[2021-09-11] MEDS ORDERED: GADOBUTROL 10 MMOL/10 ML VIAL ONE (12:56)
--- NOTE | 2021-09-11 15:25 | MRI Report ---
PROCEDURE: Lumbar Spine W/WO INDICATIONS: DEGENERATIVE JOINT DISEASE CONTRAST: IV CONTRAST: Gadavist ml: 9 TECHNIQUE: Noncontrast sagittal T1 spin echo and T2 fast spin echo, sagittal STIR, axial T1 and T2 fast spin ech o through the lumbar spine. In cases with scoliosis, additional coronal T2 fast spin echo may be per formed. After the administration of contrast, sagittal and axial T1 spin echo with fat saturation th rough the lumbar spine. COMPARISON: Correlation is made with report only from prior lumbar MRI, 09/07/2009.. Correlation is a lso made with lumbar spine plain films, 07/25/2021. FINDINGS: Image quality: Motion artifact is noted. Alignment and curvature: S-shaped scoliotic curvature is incidentally noted. No significant AP ali gnment abnormality can be seen. Marrow: Marrow is of normal overall signal. No acute vertebral body compression fractures. No susp icious marrow enhancement. Spinal cord: Conus medullaris terminates at the T12-L1 level. Visualized spinal cord demonstrates n ormal signal, without suspicious enhancement. Paraspinous soft tissues: No paravertebral masses or abnormal enhancement. Lumbosacral fixation hardware is seen at L3-S1. Disc spacers are seen at L4-L5 and at L5-S1. There uriostegui s been removal of portions of the posterior elements. Age-appropriate lower thoracic degenerative changes are seen. T12-L1: At least moderate loss of disc height and disc signal can be seen. Mild disc bulge is seen. No significant neural foraminal or central canal narrowing can be seen. L1-L2: At least moderate loss of disc height and disc signal can be seen at this level. Moderate d isc bulge is seen, with a right foraminal disc protrusion. Mild facet hypertrophy is seen. There is moderate left-sided and moderate to severe right-sided neuroforaminal narrowing. Moderate central c anal narrowing is seen. The abnormalities at this level are not described on the 2010 report. L2-L3: Mild to moderate loss of disc height and disc signal can be seen. Moderate disc bulge is se en, which is eccentric to the right. Mild to moderate facet hypertrophy is seen. Moderate bilateral neural foraminal narrowing is seen. At least moderate central canal narrowing is seen, as on series 701 image 24. These degenerative changes are progressed compared to the prior description. L3-L4: Moderate to severe loss of disc height and disc signal can be seen at this level. Mild to mo derate disc bulge is seen. Minimal to mild bilateral neuroforaminal narrowing can be seen. The centr al canal is widely patent. This level is improved compared to the prior description. L4-L5: Mild disc bulge is seen. Mild to moderate bilateral neuroforaminal narrowing can be seen. T he central canal is widely patent. This level is improved compared to the prior report. L5-S1: Mild disc bulge is seen. Mild facet hypertrophy is seen. There is mild to moderate left-s ided and no right-sided neuroforaminal narrowing. No significant central canal narrowing is seen. Com pared to the prior description, the left neural foraminal narrowing is believed to be increased. IMPRESSION: L3-S1 postoperative change. Compared to the prior 2010 MRI description, the degrees of narrowing are improved within the postoper ative region, with the exception of the left neural foramen at L5-S1. Progression of degenerative change compared to the 2010 report at L1-L2 and L2-L3. Reviewed by: Edwin Sutherland MD on 09/11/2021 2:23 PM [place] Approved by: Edwin Sutherland MD on 09/11/2021 2:23 PM [place] Station ID: [id number]
[2021-09-11] MEDS ORDERED: GADOBUTROL 10 MMOL/10 ML VIAL IVP ONE (16:13)
== END 2021-09-11 12:39 | disposition home or self-care (01) ==
LOC: DI 12:38
PROVIDERS: ATTEND Internal Medicine
DX: M47.816 Spondylosis without myelopathy or radiculopathy, lumbar region (principal); M51.36 Other intervertebral disc degeneration, lumbar region; M47.817 Spondylosis without myelopathy or radiculopathy, lumbosacral region
CPT/HCPCS: 72158; A9585

== ENCOUNTER 2022-08-08 07:09 | Outpatient (CLI) | payer BC ==
[2022-08-08 12:11] LABS: BASOPHILS # (AUTO) 0.1 10^3/uL (0.0-0.1); BASOPHILS % (AUTO) 1.2 %; EOSINOPHILS # (AUTO) 0.1 10^3/uL (0.0-0.7); EOSINOPHILS % (AUTO) 2.4 %; HCT - HEMATOCRIT 42.5 % (42.0-52.0); HGB - HEMOGLOBIN 13.5 g/dL (14.0-18.0); LYMPHOCYTES # (AUTO) 1.7 10^3/uL (1.5-3.5); LYMPHOCYTES % (AUTO) 40.4 %; MEAN CORPUSCULAR HGB CONC 31.8 g/dL (32.0-36.0); MEAN CORPUSCULAR VOLUME 97.7 fL (80.0-94.0); MEAN PLATELET VOLUME 8.8 fL (7.4-11.4); MONOCYTES # (AUTO) 0.4 10^3/uL (0.0-1.0); MONOCYTES % (AUTO) 9.1 %; NEUTROPHILS % (AUTO) 46.7 %; PLT - PLATELET COUNT 273 10^3/uL (130-450); RED BLOOD COUNT 4.35 10^6/uL (4.70-6.10); RED CELL DISTRIBUTION WIDTH 12.6 % (12.0-15.0); WHITE BLOOD COUNT 4.2 x10^3/uL (4.8-10.8)
[2022-08-08 12:24] LABS: INR 0.9 (0.8-1.2); PT - PROTHROMBIN TIME 10.2 secs (9.9-12.6)
[2022-08-08 13:06] LABS: ALBUMIN 4.3 g/dL (3.2-5.5); ALBUMIN/GLOBULIN RATIO 1.5 (1.0-2.2); ALKALINE PHOSPHATASE 58 IU/L (42-121); ALT ALANINE AMINOTRANSFERASE 22 IU/L (10-60); AST ASPARTATE AMINOTRANSFERASE 22 IU/L (10-42); BILIRUBIN,TOTAL 1.2 mg/dL (0.2-1.0); BUN - BLOOD UREA NITROGEN 21 mg/dL (6-20); CALCIUM 9.1 mg/dL (8.5-10.3); CARBON DIOXIDE - CO2 26 mmol/L (21-32); CHLORIDE 100 mmol/L (101-111); CHOL/HDL RATIO 2.4 (<5.0); CHOLESTEROL 214 mg/dL; CREATININE 0.8 mg/dL (0.6-1.2); GFR - MDRD 99 (>89); GLUCOSE 116 mg/dL (70-100); HDL CHOLESTEROL 88 mg/dL; LDL CHOLESTEROL,CALCULATED 115 mg/dL; LDL/HDL RATIO 1.3 (<3.6); SODIUM 136 mmol/L (135-145); TOTAL PROTEIN 7.1 g/dL (6.7-8.2); TRIGLYCERIDES 56 mg/dL; VLDL CHOLESTEROL 11 mg/dL
[2022-08-08 14:18] LABS: ESTIMATED AVERAGE GLUCOSE 114 mg/dL (70-100); HEMOGLOBIN A1c% 5.6 % (4.27-6.07)
== END 2022-08-08 07:10 | disposition home or self-care (01) ==
LOC: LAB.N 07:09
PROVIDERS: ATTEND Internal Medicine
DX: Z01.812 Encounter for preprocedural laboratory examination (principal); I10 Essential (primary) hypertension; E78.5 Hyperlipidemia, unspecified; R73.01 Impaired fasting glucose; Z12.5 Encounter for screening for malignant neoplasm of prostate
CPT/HCPCS: 36415; 80053; 80061; 83036; 83721; 84153; 85025; 85610

== ENCOUNTER 2022-08-25 17:00 | Outpatient (CLI) | payer BC ==
[2022-08-25 18:16] LABS: BILIRUBIN,URINE NEGATIVE (NEGATIVE); GLUCOSE, URINE (UA) NEGATIVE (NEGATIVE); KETONES,URINE (UA) NEGATIVE (NEGATIVE); LEUKOCYTE ESTERASE, URINE NEGATIVE (NEGATIVE); NITRITE,URINE NEGATIVE (NEGATIVE); OCCULT BLOOD,URINE NEGATIVE (NEGATIVE); PH,URINE 6.5 PH (5.0-7.5); PROTEIN,URINE NEGATIVE (NEGATIVE); UROBILINOGEN,URINE 0.2 (NORMAL) E.U./dL (NORMAL)
[2022-08-25 18:36] LABS: CLARITY,URINE CLEAR (CLEAR); WBC,URINE 0-3 /HPF (0-3)
[2022-08-25 18:37] LABS: BACTERIA,URINE None Seen /HPF (None Seen); RBC,URINE None Seen /HPF (0-5); SQUAMOUS EPITHELIAL CELL,UR NONE SEEN (<= Few)
== END 2022-08-25 23:59 | disposition home or self-care (01) ==
LOC: LAB.WCP 17:00
PROVIDERS: ATTEND Internal Medicine
DX: Z01.812 Encounter for preprocedural laboratory examination (principal)
CPT/HCPCS: 81001; 87086; 87640

== ENCOUNTER 2022-11-11 05:55 | Outpatient (CLI) | payer BC ==
[2022-11-11 06:32] LABS: CREATININE 0.8 mg/dL (0.6-1.2)
[2022-11-11] MEDS ORDERED: GADOBUTROL 10 MMOL/10 ML VIAL ONE (07:16)
--- NOTE | 2022-11-11 11:09 | MRI Report ---
PROCEDURE: LUMBAR SPINE W/WO INDICATIONS: DJD LUMBAR SPINE, HX OF BACK SURGERY CONTRAST: gadavist 8.8ml TECHNIQUE: Noncontrast sagittal T1 spin echo and T2 fast spin echo, sagittal STIR, axial T1 and T2 fast spin ech o through the lumbar spine. In cases with scoliosis, additional coronal T2 fast spin echo may be per formed. After the administration of contrast, sagittal and axial T1 spin echo with fat saturation th rough the lumbar spine. COMPARISON: 09/11/2021. FINDINGS: Image quality: Excellent. Alignment and curvature: Minimal S-shaped curvature. Leftward listhesis of L1 and L2 measures 9 mm. R emote posterior lateral marcela and pedicle screw fixation from L3 through S1 with pedicle screws at all levels bilaterally, as well as posterior laminectomy at L5. Marrow: Marrow is of normal overall signal. No acute vertebral body compression fractures. No susp icious marrow enhancement. Spinal cord: Conus medullaris terminates at the L1 level. Visualized spinal cord demonstrates cristofer l signal, without suspicious enhancement. Paraspinous soft tissues: No paravertebral masses or abnormal enhancement. T11-T12: No canal stenosis or foraminal stenosis. T12-L1: No canal stenosis or foraminal stenosis. L1-L2: Unchanged findings. Severe disc height loss. Posterior disc plus osteophyte. Facet hypertro phy. Mild central canal stenosis. Moderate to severe right foraminal narrowing with a mild degree of right foraminal L1 nerve root impingement. L2-L3: No significant change. Diffuse disc bulge with superimposed broad-based right paracentral d isc protrusion. Facet hypertrophy. Moderate canal stenosis. No significant foraminal stenosis. L3-L4: No significant change. Fused. No canal stenosis or foraminal stenosis. L4-L5: No significant change. Fused. No canal stenosis or foraminal stenosis. L5-S1: No significant change. Fused. No canal stenosis or foraminal stenosis. IMPRESSION: 1. Stable findings. 2. Remote L5 laminectomy and posterior lateral fusion from L3 through S1. No canal stenosis or forami nal stenosis at the surgical levels. 3. Canal stenosis is mild at L1-L2 and moderate at L2-L3. 4. At L1-L2, there is moderate to severe right foraminal narrowing. Reviewed by: Clayton Panda MD on 11/11/2022 11:08 AM PDT Approved by: Clayton Panda MD on 11/11/2022 11:08 AM PDT Station ID: [id number]
[2022-11-11] MEDS ORDERED: GADOBUTROL 10 MMOL/10 ML VIAL IVP ONE (13:30)
== END 2022-11-11 05:56 | disposition home or self-care (01) ==
LOC: LAB 05:55
PROVIDERS: ATTEND Internal Medicine
DX: M47.816 Spondylosis without myelopathy or radiculopathy, lumbar region (principal); M48.061 Spinal stenosis, lumbar region without neurogenic claudication; Z98.1 Arthrodesis status
CPT/HCPCS: 36415; 72158; 82565; A9585

== ENCOUNTER 2024-02-18 08:49 | Outpatient (CLI) | payer OTHER, BC ==
--- NOTE | 2024-02-18 15:05 | XRAY Report ---
PROCEDURE: Knee 1-2V RT INDICATIONS: KNEE PAIN TECHNIQUE: 2 views of the knee(s) were acquired. COMPARISON: None. FINDINGS: Bones: No fractures or dislocations. No suspicious bony lesions. Tricompartmental joint space peter rowing with associated osteophytosis. Soft tissues: Small knee joint effusion. No suspicious soft tissue calcifications or masses. IMPRESSION: No acute bony abnormality. Small knee joint effusion. Mild to moderate tricompartmental osteoarthritis. Kellgren-Leno scale of osteoarthritis: 2. Reviewed by: Mendez Larry MD on 02/18/2024 3:03 PM PDT Approved by: Mendez Larry MD on 02/18/2024 3:03 PM PDT Station ID: [id number]
== END 2024-02-18 08:50 | disposition home or self-care (01) ==
LOC: DI 08:49
PROVIDERS: ATTEND Internal Medicine Cardiovascular Disease
DX: M25.461 Effusion, right knee (principal); M17.11 Unilateral primary osteoarthritis, right knee